=== PATIENT | female | born 1955 | race African-American/Black ===

== ENCOUNTER 2018-12-20 13:21 | Inpatient (IN) | payer MEDICARE ==
[~2018-12-20] VITALS: Ht 170.2 cm; Wt 104.3 kg
[2018-12-20] MEDS ORDERED: AMLO10TA80 PO (13:48)
[2018-12-20 14:28] LABS: BASOPHILS % 0.2 % (0.0-2.0); EOSINOPHILS % 0.3 % (0.0-5.0); HEMATOCRIT. 44.8 % (36.0-48.0); LYMPHOCYTES % 25.7 % (20.0-50.0); MEAN CORPUSCULAR HEMOGLOBIN 30.3 pg (28.0-32.0); MEAN CORPUSCULAR VOLUME 90.5 fL (81.0-99.0); MEAN PLATELET VOLUME 8.6 fl (7.4-10.4); MONOCYTES % 4.3 % (2.0-8.0); NEUTROPHILS % 69.5 % (40.0-76.0); PLATELET 260 x1000/uL (130-400); RED BLOOD CELL COUNT 4.95 mill/uL (4.2-5.4); RED CELL DISTRIBUTION WIDTH 14.7 % (11.6-14.6)
[2018-12-20 14:34] LABS: CHLORIDE 108 mEq/L (98-107); PROTHROMBIN TIME 10.7 sec (9.6-11.0)
[2018-12-20 14:38] LABS: ETHANOL BLOOD < 10 mg/dL
[2018-12-20 14:41] LABS: LDL CHOLESTEROL 94 mg/dL (5-100)
[2018-12-20] MEDS ORDERED: ASPIRIN 325MG EC TABLET PO ONE (14:45)
[2018-12-20] MEDS ORDERED: ONDANSETRON HCL 4MG/2ML INJ IV PRN (15:45)
[2018-12-20] MEDS ORDERED: CLONIDINE 0.1MG TABLET PO PRN (15:45)
[2018-12-20] MEDS ORDERED: MAGNESIUM/ALUMINUM HYDROXIDE/SIMETHICONE 30ML UDC PO PRN (15:45)
[2018-12-20] MEDS ORDERED: ZOLPIDEM TARTRATE 5MG TABLET PO PRN (15:45)
[2018-12-20] MEDS ORDERED: NITROGLYCERIN 0.4MG TABLET SL SL PRN (15:45)
[2018-12-20] MEDS ORDERED: GUAIFENESIN 200MG/10ML SUGAR FREE UDC PO PRN (15:45)
[2018-12-20] MEDS ORDERED: DOCUSATE SODIUM 100MG CAPSULE PO PRN (15:45)
[2018-12-20] MEDS ORDERED: ACETAMINOPHEN 325MG TABLET PO PRN (15:45)
[2018-12-20] MEDS ORDERED: IPRATROPIUM/ALBUTEROL 0.5-3(2.5)MG/3ML NEB NEB PRN (15:45)
[2018-12-20] MEDS ORDERED: TRAMADOL 50MG TABLET PO PRN (15:45)
[2018-12-20] MEDS ORDERED: DEXTROSE 50% WATER 50ML SYRINGE IV PRN (17:15)
[2018-12-20 18:40] LABS: CLARITY URINE CLEAR (CLEAR); COLOR URINE YELLOW (YELLOW); KETONES URINE TRACE (NEGATIVE); LEUKOCYTE ESTERASE URINE NEGATIVE (NEGATIVE); NITRITE URINE NEGATIVE (NEGATIVE); OCCULT BLOOD URINE TRACE (NEGATIVE); PH URINE 7.5 (4.5-8.0); PROTEIN URINE NEGATIVE (NEGATIVE); SPECIFIC GRAVITY URINE 1.038 (1.005-1.030); UROBILINOGEN URINE 0.2 E.U./dL (0.2-1.0)
[2018-12-20 18:56] LABS: *AMPHETAMINES SCREEN URINE NEGATIVE (NEGATIVE); *BARBITURATES SCREEN URINE NEGATIVE (NEGATIVE); *BENZODIAZEPINES SCREEN URINE NEGATIVE (NEGATIVE)
[2018-12-20 18:57] LABS: *COCAINE SCREEN URINE NEGATIVE (NEGATIVE); CANNABINOID URINE SCREEN NEGATIVE (NEGATIVE); METHADONE URINE SCREEN NEGATIVE (NEGATIVE); OPIATES URINE SCREEN NEGATIVE (NEGATIVE); PHENCYCLIDINE URINE SCREEN NEGATIVE (NEGATIVE)
[2018-12-20] MEDS ORDERED: LABETALOL HCL 20MG/4ML CARPUJECT IV ONE (19:15)
[2018-12-20] MEDS ORDERED: LABETALOL 5MG/ML SYR 20 MG/4 ML SYRINGE IV ONE (19:45)
[2018-12-20] MEDS ORDERED: IOHEXOL-350 100 ML BOTTLE ONE (21:17)
[2018-12-20] MEDS: ATORVASTATIN CALCIUM 10MG TABLET PO SCH (22:30)
[2018-12-20] MEDS: CLOPIDOGREL 75MG TABLET PO SCH (22:30)
[2018-12-20] MEDS: LISINOPRIL 20MG TABLET PO SCH (22:30)
[2018-12-20] MEDS: FAMOTIDINE 20MG TABLET PO SCH (22:30)
[2018-12-20] MEDS: METOPROLOL TARTRATE 25MG TABLET PO SCH (22:30)
[2018-12-20 22:35] VITALS: BP 177/80
[2018-12-21] VITALS: BP 144/75
[2018-12-21 00:01] VITALS: BP 157/75
[2018-12-21 01:02] LABS: CREATINE KINASE 166 IU/L (26-192)
[2018-12-21 01:03] LABS: CREATINE KINASE MB FRACTION < 1.0 ng/mL (0.5-3.6)
[2018-12-21 04:00] VITALS: BP 151/86
[2018-12-21] MEDS: BLOOD SUGAR DIAGNOSTIC STRIP TEST SCH ×4 (06:32→21:44)
[2018-12-21] MEDS: INSULIN LISPRO 100 UNITS/ML SUBCUT SCH ×4 (06:40→21:00)
[2018-12-21 07:36] LABS: CREATINE KINASE 185 IU/L (26-192)
[2018-12-21 07:38] LABS: CREATINE KINASE MB FRACTION < 1.0 ng/mL (0.5-3.6)
[2018-12-21] MEDS: METOPROLOL TARTRATE 25MG TABLET PO SCH ×2 (09:00→21:00)
[2018-12-21] MEDS: LISINOPRIL 20MG TABLET PO SCH ×2 (09:00→21:00)
[2018-12-21] MEDS ORDERED: ASPIRIN 325MG EC TABLET PO SCH (09:00)
[2018-12-21] MEDS: CLOPIDOGREL 75MG TABLET PO SCH (11:30)
[2018-12-21] MEDS: ENOXAPARIN 30MG/0.3ML SYR SUBCUT SCH ×2 (11:30→21:43)
[2018-12-21] MEDS: FAMOTIDINE 20MG TABLET PO SCH ×2 (11:30→21:43)
[2018-12-21 12:00] VITALS: BP 154/81
[2018-12-21 12:17] LABS: FOLIC ACID (FOLATE) SERUM 9.2 ng/mL (>5.38)
[2018-12-21 14:44] LABS: T4 FREE 1.14 ng/dL (0.76-1.46)
[2018-12-21 16:00] VITALS: BP 176/84
[2018-12-21 20:00] VITALS: BP 159/71
[2018-12-21] MEDS: ATORVASTATIN CALCIUM 10MG TABLET PO SCH (21:59)
[2018-12-22] VITALS: BP 183/92
[2018-12-22 04:00] VITALS: BP 158/89
[2018-12-22] MEDS: BLOOD SUGAR DIAGNOSTIC STRIP TEST SCH ×4 (06:46→20:47)
[2018-12-22] MEDS: INSULIN LISPRO 100 UNITS/ML SUBCUT SCH ×4 (07:45→20:59)
[2018-12-22 08:00] VITALS: BP 162/83
[2018-12-22] MEDS: ENOXAPARIN 30MG/0.3ML SYR SUBCUT SCH ×2 (08:55→20:47)
[2018-12-22] MEDS: CLOPIDOGREL 75MG TABLET PO SCH (08:55)
[2018-12-22] MEDS: FAMOTIDINE 20MG TABLET PO SCH ×2 (08:55→20:45)
[2018-12-22] MEDS: LISINOPRIL 20MG TABLET PO SCH (09:00)
[2018-12-22] MEDS: METOPROLOL TARTRATE 25MG TABLET PO SCH (09:00)
[2018-12-22 12:00] VITALS: BP 140/82
[2018-12-22] MEDS: AMLODIPINE 5MG TABLET PO SCH ×2 (12:35→20:45)
[2018-12-22 16:00] VITALS: BP 159/80
[2018-12-22 20:00] VITALS: BP 157/77
[2018-12-22] MEDS: ATORVASTATIN CALCIUM 10MG TABLET PO SCH (20:45)
[2018-12-23] VITALS: BP 141/68
[2018-12-23 04:00] VITALS: BP 150/78
[2018-12-23] MEDS: BLOOD SUGAR DIAGNOSTIC STRIP TEST SCH ×4 (06:04→21:25)
[2018-12-23 08:00] VITALS: BP 150/84
[2018-12-23] MEDS: INSULIN LISPRO 100 UNITS/ML SUBCUT SCH ×4 (08:10→21:00)
[2018-12-23] MEDS: AMLODIPINE 5MG TABLET PO SCH ×2 (09:28→21:14)
[2018-12-23] MEDS: FAMOTIDINE 20MG TABLET PO SCH ×2 (09:28→21:14)
[2018-12-23] MEDS: CLOPIDOGREL 75MG TABLET PO SCH (09:28)
[2018-12-23] MEDS: ENOXAPARIN 30MG/0.3ML SYR SUBCUT SCH ×2 (09:29→21:14)
[2018-12-23 12:00] VITALS: BP 140/77
[2018-12-23] MEDS ORDERED: NA PHOS,M-B/NA PHOS,DI-BA ENEMA 118ML PR NR (15:08)
[2018-12-23 16:00] VITALS: BP 109/70
[2018-12-23] MEDS: LACTULOSE 20G/30ML UDC PO SCH ×2 (16:32→21:14)
[2018-12-23] MEDS: DOCUSATE SODIUM 100MG CAPSULE PO SCH (17:36)
[2018-12-23 20:00] VITALS: BP 137/57
[2018-12-23] MEDS: ATORVASTATIN CALCIUM 10MG TABLET PO SCH (21:14)
[2018-12-24] VITALS: BP 153/96
[2018-12-24 04:00] VITALS: BP 117/57
[2018-12-24] MEDS: BLOOD SUGAR DIAGNOSTIC STRIP TEST SCH ×4 (06:15→21:00)
[2018-12-24 08:00] VITALS: BP 126/73
[2018-12-24] MEDS ORDERED: NA PHOS,M-B/NA PHOS,DI-BA ENEMA 118ML PR PRN (08:00)
[2018-12-24] MEDS: INSULIN LISPRO 100 UNITS/ML SUBCUT SCH ×4 (08:10→21:00)
[2018-12-24] MEDS: DOCUSATE SODIUM 100MG CAPSULE PO SCH ×2 (09:50→17:15)
[2018-12-24] MEDS: POLYETHYLENE GLYCOL 3350 (17GM) 1 DOSE PACK PO SCH (09:50)
[2018-12-24] MEDS: LACTULOSE 20G/30ML UDC PO SCH (09:50)
[2018-12-24] MEDS: FAMOTIDINE 20MG TABLET PO SCH ×2 (09:51→22:27)
[2018-12-24] MEDS: AMLODIPINE 5MG TABLET PO SCH ×2 (09:51→22:28)
[2018-12-24] MEDS: CLOPIDOGREL 75MG TABLET PO SCH (09:51)
[2018-12-24] MEDS: ENOXAPARIN 30MG/0.3ML SYR SUBCUT SCH ×2 (09:53→22:29)
[2018-12-24 12:00] VITALS: BP 177/94
[2018-12-24] MEDS ORDERED: CLONIDINE 0.1MG TABLET PO PRN (14:15)
[2018-12-24 16:00] VITALS: BP 147/76
[2018-12-24 20:00] VITALS: BP 137/73
[2018-12-24] MEDS: ATORVASTATIN CALCIUM 10MG TABLET PO SCH (22:27)
[2018-12-24] MEDS: METOPROLOL TARTRATE 25MG TABLET PO SCH (22:27)
[2018-12-25] VITALS: BP 128/80
[2018-12-25 04:00] VITALS: BP 130/70
[2018-12-25 04:10] LABS: ANTI-THROMBIN ACTIVITY 95 % (75-135); DRVVT LA 29.9 sec (0.0-47.0); LUPUS ANTICOAG INTERPRETATION Comment: (.); PROTEIN C FUNCTIONAL 144 % (73-180); PTT-LA 33.4 sec (0.0-51.9)
[2018-12-25] MEDS: BLOOD SUGAR DIAGNOSTIC STRIP TEST SCH ×3 (07:40→16:26)
[2018-12-25] MEDS: INSULIN LISPRO 100 UNITS/ML SUBCUT SCH ×3 (07:49→16:27)
[2018-12-25 08:00] VITALS: BP 138/77
[2018-12-25] MEDS: CLOPIDOGREL 75MG TABLET PO SCH (09:13)
[2018-12-25] MEDS: METOPROLOL TARTRATE 25MG TABLET PO SCH ×2 (09:13→20:47)
[2018-12-25] MEDS: AMLODIPINE 5MG TABLET PO SCH ×2 (09:13→20:48)
[2018-12-25] MEDS: POLYETHYLENE GLYCOL 3350 (17GM) 1 DOSE PACK PO SCH (09:14)
[2018-12-25] MEDS: ENOXAPARIN 30MG/0.3ML SYR SUBCUT SCH ×2 (09:14→20:46)
[2018-12-25] MEDS: DOCUSATE SODIUM 100MG CAPSULE PO SCH ×2 (09:14→17:31)
[2018-12-25] MEDS: FAMOTIDINE 20MG TABLET PO SCH ×2 (09:15→20:47)
[2018-12-25 12:00] VITALS: BP 141/75
[2018-12-25 13:06] LABS: ANTI-CARDIOLIPIN AB IGA < 9 APL U/mL (0-11); ANTI-CARDIOLIPIN AB IGG < 9 GPL U/mL (0-14); ANTI-CARDIOLIPIN AB IGM 15 MPL U/mL (0-12)
[2018-12-25 16:22] VITALS: BP 125/69
[2018-12-25 20:00] VITALS: BP 139/71
[2018-12-25] MEDS: ATORVASTATIN CALCIUM 10MG TABLET PO SCH (20:47)
[2018-12-26] VITALS: BP 166/85
[2018-12-26 04:00] VITALS: BP 150/72
[2018-12-26 08:15] VITALS: BP 144/80
[2018-12-26] MEDS: DOCUSATE SODIUM 100MG CAPSULE PO SCH ×2 (08:28→17:00)
[2018-12-26] MEDS: CLOPIDOGREL 75MG TABLET PO SCH (08:28)
[2018-12-26] MEDS: FAMOTIDINE 20MG TABLET PO SCH (08:28)
[2018-12-26] MEDS: POLYETHYLENE GLYCOL 3350 (17GM) 1 DOSE PACK PO SCH (08:29)
[2018-12-26] MEDS: METOPROLOL TARTRATE 25MG TABLET PO SCH (08:29)
[2018-12-26] MEDS: AMLODIPINE 5MG TABLET PO SCH (08:29)
[2018-12-26] MEDS: ENOXAPARIN 30MG/0.3ML SYR SUBCUT SCH (08:30)
[2018-12-26 11:32] VITALS: BP 126/72
[2018-12-26 16:29] VITALS: BP 128/52
[2018-12-26 17:01] VITALS: BP 128/64
[2018-12-27 13:11] LABS: 25-HYDROXY VITAMIN D3 13 ng/mL (.)
== END 2018-12-26 19:00 | DRG 65 ==
LOC: ER 13:21 → 7WST 15:19 → EDBEDREQSVC 15:35 → EDBEDREQ 15:35 → EDBEDREQTM 15:35 → SUPCPDRO 15:37 → ENRESERV 21:33
PROVIDERS: ADMIT Internal Medicine; ATTEND Internal Medicine
DX: I63.9 Cerebral infarction, unspecified (principal); G81.91 Hemiplegia, unspecified affecting right dominant side; R41.4 Neurologic neglect syndrome; I10 Essential (primary) hypertension; E11.9 Type 2 diabetes mellitus without complications; E78.00 Pure hypercholesterolemia, unspecified; R47.01 Aphasia; R47.1 Dysarthria and anarthria; M17.0 Bilateral primary osteoarthritis of knee; R47.81 Slurred speech; L89.90 Pressure ulcer of unspecified site, unspecified stage; H53.461 Homonymous bilateral field defects, right side; R13.10 Dysphagia, unspecified; Z79.02 Long term (current) use of antithrombotics/antiplatelets; Z79.4 Long term (current) use of insulin; Z79.899 Other long term (current) drug therapy; Z82.5 Family history of asthma and other chronic lower respiratory diseases; Z86.73 Personal history of transient ischemic attack (TIA), and cerebral infarction without residual deficits
CPT/HCPCS: 36415; 70496; 70498; 70551; 71045; 80061; 80305; 80320; 81003; 81400; 81403; 81407; 81479; 82306; 82550; 82553; 82607; 82746; 82962; 83036; 83721; 84134; 84439; 84443; 84481; 84484; 85300; 85303; 85306; 85613; 85732; 86147; 92523; 92610; 93005; 93306; 93970; 94640; 94660; 96372; 97112; 97163; 97167; 97530; 99291; J1650; J3490; J7620; Q9967; G0480